=== PATIENT | male | born 1965 | race Caucasian/White ===

== ENCOUNTER 2017-03-30 09:17 | Emergency (ER) | payer BC ==
--- NOTE | 2017-03-30 09:52 | EDM.PDOC ---
ED HPI GENERAL MEDICAL PROBLEM - General Chief Complaint: Respiratory Problem Stated Complaint: SOB , CONGESTION AND COUGH Time Seen by Provider: 03/30/17 09:40 Source of Information: Reports: Patient, RN Notes Reviewed Generalized Pain Score (Numeric/FACES): 4 - Related Data Allergies Allergy/AdvReac Type Severity Reaction Status Date / Time meperidine [From Demerol] Allergy Cannot Verified 03/30/17 09:28 Remember Home Meds: Home Meds Flovoxamine. 1 tab PO DAILY 03/30/17 [History] Past Medical History - Past Health History Medical/Surgical History: Denies Medical/Surgical History Psychiatric History: Reports: Depression Social & Family History - Tobacco Use Smoking Status *Q: Never Smoker ED ROS GENERAL - Review of Systems Review Of Systems: See Below Constitutional: Denies: Fever, Chills HEENT: Reports: Sinus Problem (Mild has been quite severe nasal and sinus congestion and drainage for the past several weeks and then an earlier episode about 2 months ago), Throat Pain Respiratory: Reports: Cough, Sputum (Primarily nasal and sinus drainage, yellow and green) Cardiovascular: Denies: Chest Pain GI/Abdominal: Denies: Abdominal Pain, Nausea, Vomiting Musculoskeletal: Reports: Other Skin: Reports: No Symptoms Neurological: Reports: No Symptoms ED EXAM, GENERAL - Physical Exam Exam: See Below General Appearance: Alert, Mild Distress Eye Exam: Bilateral Eye: PERRL Nose: Nasal Drainage Throat/Mouth: Normal Inspection, Normal Oropharynx Head: Sinus Tenderness (Mild). No: Facial Swelling Neck: Supple, Full Range of Motion Respiratory/Chest: No Respiratory Distress, Lungs Clear, Normal Breath Sounds. No: Rhonchi, Wheezing Cardiovascular: Regular Rate, Rhythm Extremities: Normal Inspection, Normal Range of Motion Skin Exam: Warm, Dry, Normal Color Course - Vital Signs Last Recorded V/S: Last Vital Signs Temp 97.5 F 03/30/17 09:30 Pulse 88 03/30/17 09:30 Resp 19 03/30/17 09:30 BP 125/81 03/30/17 09:30 Pulse Ox 98 03/30/17 09:30 Departure - Departure Time of Disposition: 10:00 Disposition: Home, Self-Care 01 Condition: Fair Clinical Impression: Sinusitis Qualifiers: Sinusitis location: unspecified location Chronicity: acute Recurrence: non- recurrent Qualified Code(s): J01.90 - Acute sinusitis, unspecified - Discharge Information Instructions: Sinusitis, Adult, [id number] Referrals: PCP,None [Primary Care Provider] - Forms: ED Department Discharge Additional Instructions: Vaporizer or steam as needed, Keflex antibiotic 500 mg 4 times daily for 1 week or until gone, [id number] decongestant medication as needed, follow up clinic if not much better within 5-10 days as expected, return to ED as needed if symptoms worsening in any way.
== END 2017-03-30 10:10 | disposition home or self-care (01) ==
LOC: JD.ED 09:17
DX: J01.90 Acute sinusitis, unspecified (principal); Z88.8 Allergy status to other drugs, medicaments and biological substances; Z79.899 Other long term (current) drug therapy
CPT/HCPCS: 99283